=== PATIENT | male | born 1930 | race Caucasian/White ===

== ENCOUNTER → 2017-01-11 | Outpatient (CLI) | payer OTHER ==
[~2017-01-11] MED LIST: CALC-393 PO; CHOL2000 PO; DTR/5 PO; LSN/10125 PO; PANT1TAB48 PO; PSYL55.43 PO; SAW450CA5 PO; TAMS0.4C38 PO
[2017-01-11 12:36] LABS: ALT/SGPT 32 U/L (12-78); AST/SGOT 14 U/L (15-37); BLOOD UREA NITROGEN 17 mg/dl (7-18); BUN/CREATININE RATIO 13.9 (10-20); CALCIUM 8.7 mg/dl (8.5-10.1); CARBON DIOXIDE 28 mmol/L (21-32); CHLORIDE 110 mmol/L (98-107); CHOLESTEROL 153 mg/dl (0-200); CHOLESTEROL/HDL RATIO 3.9; GLUCOSE 131 mg/dl (70-99); HDL CHOLESTEROL 39 mg/dl; SODIUM 144 mmol/L (136-145)
[2017-01-11 12:39] LABS: ESTIMATED AVERAGE GLUCOSE 146 mg/dl; HA1C FLAG Normal (Normal)
[2017-01-11 12:40] LABS: ALB/GLOB RATIO 0.9 (0.9-2); ALKALINE PHOSPHATASE 81 U/L (45-117); LDL CHOLESTEROL CALCULATED 92 mg/dl; TRIGLYCERIDES 111 mg/dl (0-150); VERY LOW DENSITY LIPOPROT CALC 22 mg/dl
[2017-01-11 12:55] LABS: RATIO 19.2 mcg/mg (0-30.0)
== END | disposition home or self-care (01) ==
LOC: C.LABBFT 08:21
PROVIDERS: ATTEND Internal Medicine
DX: C61 Malignant neoplasm of prostate (principal); I10 Essential (primary) hypertension; Z13.6 Encounter for screening for cardiovascular disorders; E11.9 Type 2 diabetes mellitus without complications

== ENCOUNTER → 2017-01-17 | Outpatient (CLI) | payer OTHER ==
--- NOTE | 2017-01-17 14:41 | DIAGNOSTIC IMAGING REPORT ---
LEFT LOWER EXTREMITY VENOUS DOPPLER CLINICAL HISTORY: Left leg pain. COMPARISON STUDY: No previous studies for comparison. TECHNIQUE: Sonography of the deep venous system of the left lower extremity was performed. Compression and augmentation were evaluated. FINDINGS: The left common femoral, superficial femoral and popliteal veins were compressible. Augmentation was normal. Flow was shown within the deep calf vessels. Left calf subcutaneous edema was incidentally noted. IMPRESSION: No evidence of deep venous thrombus within the left lower extremity. Electronically signed by: Felipe Urrutia M.D. 01/17/2017 2:39 PM Dictated Date/Time: 01/17/2017 2:39 PM
== END | disposition home or self-care (01) ==
LOC: C.ULTR 14:02
PROVIDERS: ATTEND Physician Assistant Medical
DX: R22.42 Localized swelling, mass and lump, left lower limb (principal); M79.605 Pain in left leg; Z08 Encounter for follow-up examination after completed treatment for malignant neoplasm; Z92.3 Personal history of irradiation; Z85.46 Personal history of malignant neoplasm of prostate

== ENCOUNTER → 2017-01-17 | Outpatient (CLI) | payer OTHER ==
[2017-01-17 13:17] VITALS: BP 102/58; PULSE 67; TEMP 36.8; O2SAT 93
--- NOTE | 2017-01-17 16:22 | Radiation Oncology Follow-Up ---
Radiation Oncology Follow-Up Date of Visit Jan 17, 2017. Reason For Visit Six-month follow-up Radiation Completion Date 11/04/15 Diagnosis (1) Prostate cancer Status: Resolved Onset Date: 07/12/2011 Location: both lobes of prostate Histology Subtype: adenocarcinoma Stage: lll Permanent Comment: Rising PSA pretreatment PSA 12.6, on Avodart therefore 25.2 Status post ultrasound-guided biopsy 07/12/2011, biopsy stage TIIa Carter 3+3 Status post ultrasound-guided biopsy 12/11/2013 biopsy stage TIIa Carter 3+4 Status post ultrasound-guided biopsy 12/24/2014 biopsy stage TIIc Carter 4+3 and 3+3 Status post completion of radiation therapy utilizing IMRT/IGRT completed 2015 received 8040 cGy Last Edited By: Jennifer Quintero on Nov 13, 2015 09:06 History of Present Illness Mr. Sapp is an 86-year-old male who does not have a family history of prostate cancer. He was followed with screening prostate-specific antigens provided by the hospital until age 75. Subsequent to that he underwent testing secondary to symptoms. In April 2010 his prostate-specific antigen was 9.2. This was repeated in November 2010 and was 10.6. Because of the elevated prostate-specific antigen the patient was seen by Dr. Guzman. His digital rectal exam was unremarkable except for an enlarged prostate. On 07/12/2011 he underwent ultrasound-guided biopsies. A total of 14 biopsies were taken two each from the right and left base, right and left mid gland, right and left apex and one each from the right and left anterior gland. The biopsies from the left and right base revealed no malignancy but evidence of moderate acute and chronic inflammation. The biopsies from the left and right mid gland revealed no malignancy but mild chronic inflammation. Biopsies of left and right apex revealed no malignancy with mild chronic inflammation of the right apex. Biopsy of the left anterior gland was benign. Biopsy of the right anterior gland was positive for an adenocarcinoma [place] grade of 3+3 involving 25% of the core sample with no perineural invasion seen. Therefore a total of 1 out of 14 biopsies were taken Carter grade 3+3 Case: [id number]. The patient chose at that time to proceed with active surveillance. The patient continued to be monitored. His prostate-specific antigen on 2011 was 12.75. Prostate-specific antigen from 08/28/2012 was 15.2. The patient was started on Avodart 0.5 mg a day. Prostate-specific antigen from February 2013 reflected response to the initiation of the Avodart with a value of 6.08 for an adjusted value of 12.16. Prostate-specific antigen on 07/11/2013 was 8.49 for an adjusted value of 16.98. The patient was seen on 07/26/2013 with a complaint of hematuria. Dr. Guzman ordered a CT scan of the abdomen and pelvis with and without contrast that was performed on . This showed no renal masses or calculi. Multiple bilateral renal cysts were appreciated. Hepatic cysts were appreciated and an enlarged prostate measuring 6.3 cm. The patient was followed with a repeat prostate-specific antigen on 10/10/2013. This showed continued elevation despite being on Avodart with a value of 9.29 or an adjusted value of 18.58. Patient returned to see Dr. Guzman on 11/04/2013. His estimated prostate volume was greater than 100 mL. Because of the continued rise in prostate-specific antigen a repeat biopsy was recommended and performed on 2013. Again a total of 14 biopsies were taken as before. Biopsies from the left and right base, left and right mid, left apex and left and right anterior glands were all benign. The biopsy from the right apex was positive for an adenocarcinoma [place] grade of 3+4 involving 80% of the core sample with less than 5% of the tumor consisting of Sanchez pattern 4. No perineural invasion was identified. Case: [id number]. Estimated prostate volume was 77.4 g. The patient returned to discuss the findings of this second biopsy on 2013. At age 83 and given the small amount of Carter 4 it was felt reasonable to continue with observation with repeat prostate-specific antigen in 6 months and repeat biopsy in a year. On 06/25/2014 the patient had a repeat prostate-specific antigen that was 11.9 for an adjusted value of 23.8. The decision was made to repeat the prostate-specific antigen in 6 months. This was performed on 12/15/2014. The prostate-specific antigen value was 12.6 or an adjusted value of 25.2. Because of the continued progression of the prostate-specific antigen despite remaining on Avodart a third biopsy was recommended and performed on 12/24/2014. Again a total of 14 biopsies were taken. 2 biopsies from the left base were benign. 2 biopsies in the right base were benign with mild chronic inflammation and no neoplasm seen. 2 biopsies from the left mid gland were benign. 2 biopsies from the right mid gland were benign with mild chronic inflammation and no neoplasm seen. One of 2 biopsies in the left apex were positive for adenocarcinoma Carter grade of 3+3 involving one of 2 cores and 7% of the core sample with no perineural invasion identified. One of 2 biopsies from the right apex were positive for adenocarcinoma Carter grade of 4+3 involving 50% of the core sample with no perineural invasion seen. Single biopsy from the left anterior gland was positive for adenocarcinoma [place] grade of 3+4 involving 50% of the core sample and 40% of the tumor a Carter pattern 4. No perineural invasion was seen. The biopsy from the right anterior was also positive for an adenocarcinoma Sanchez grade of 4+3 involving 85% of the core sample without evidence of perineural invasion. Estimated prostate volume was 90 g. A total of 4 out of 14 biopsies were positive one of them Sanchez grade 3+3. 2 of them Sanchez grade 4+3 and 1 Carter grade 3+4. Case: 15-8-S. This latest biopsy shows a clear progression of disease with rising prostate- specific antigen and increase in the number of positive biopsies and in the Carter predominant grade 4. Dr. Guzman again discussed options including possible continuation of active surveillance as well as the possibility of radiation. Bone scan was obtained and was negative for metastatic disease. Decision was to treat with hormone suppression and external beam radiation therapy. Interim History He is doing well from urinary standpoint. His AUA score was 6. He completed expanded prostate cancer index composite for clinical practice and gave a score of 212 and urinary incontinence symptoms. He gave a score 1 of 12 urinary irritation symptoms. He gave a score of 0 of 12 and bowel symptoms. He gave a score of 7 of 12 and sexual symptoms. He gave a score 0 of 12 and hormonal vitality symptoms. His total was 10 of 60. He continues to take tamsulosin. He usually takes this at bedtime. After his last visit he did see Dr. Cullen and underwent an esophageal dilatation. This was repeated and he is doing much better in regards to swallowing. Dr. Cullen recommended Protonix which she has not been taking on a regular basis. He also has a complaint of left leg swelling. Denies pain. He notes that the swelling improves after lying down at night. Swelling is much less in the morning. Allergies Coded Allergies: No Known Allergies (Verified , 05/06/16) Home Medications Scheduled Calcium Carbonate (Calcium), 1 TAB PO QAM Cholecalciferol (Vitamin D3), 1 CAP PO QAM Hctz/Lisinopril (Lisinopril/Hctz 10/12.5 Mg), 1 TAB PO QAM Pantoprazole (Protonix), 1 TAB PO DAILY Psyllium (Metamucil Powder), 1 TSP PO QAM Saw [place] (Serenoa Repens) (Saw [place]), 1 CAP PO QAM Tamsulosin Hcl (Flomax), 1 CAP PO HS Review of Systems Gastrointestinal: Symptoms: WNL Oral: Symptoms: No Problems Respiratory: Symptoms: WNL Other Respiratory: getting over a cold and has a slight cough Urinary: Symptoms: WNL Comments: See AUA & EPIC Skin: Symptoms: No Problems Physical Exam Vital Signs Date Time Temp Pulse Resp B/P Pulse Ox O2 Delivery O2 Flow Rate FiO2 01/17/17 13:17 36.8 67 14 102/58 93 Fatigue: None General Appearance: no apparent distress Eyes: normal inspection, EOMI ENT: normal ENT inspection, hearing grossly normal Neck: no adenopathy, thyroid normal Respiratory/Chest: lungs clear, no respiratory distress, no accessory muscle use Cardiovascular: regular rate, rhythm, no gallop, no murmur Abdomen: non tender, soft, no organomegaly Anal / Rectum: Normal sphincter tone. No rectal masses no rectal bleeding. Prostate mildly enlarged. Extremities: + pertinent finding (there is noted swelling of the left lower extremity. He has +2 edema. There is mild edema on the right. He is a negative Homans sign.) Neurologic/Psychiatric: no motor/sensory deficits, alert, normal mood/affect Skin: warm/dry Lymphatic: no adenopathy Laboratory Studies Test 01/11/17 08:23 Urine Random Creatinine 180.0 mg/dl Urine Random Microalbumin 34.6 mg/L Urine Microalbumin/Creatinine Ratio 19.2 mcg/mg (0-30.0) Sodium Level 144 mmol/L (136-145) Potassium Level 4.0 mmol/L (3.5-5.1) Chloride Level 110 mmol/L (98-107) Carbon Dioxide Level 28 mmol/L (21-32) Anion Gap 6.0 mmol/L (3-11) Blood Urea Nitrogen 17 mg/dl (7-18) Creatinine 1.20 mg/dl (0.60-1.40) Estimated GFR () 63.1 Estimated GFR (Non- 54.4 BUN/Creatinine Ratio 13.9 (10-20) Random Glucose 131 mg/dl (70-99) Estimated Average Glucose 146 mg/dl Hemoglobin A1c 6.7 % (4.5-5.6) Calcium Level 8.7 mg/dl (8.5-10.1) Total Bilirubin 0.3 mg/dl (0.2-1) Aspartate Amino Transferase (AST) 14 U/L (15-37) Alanine Aminotransferase (ALT) 32 U/L (12-78) Alkaline Phosphatase 81 U/L (45-117) Total Protein 7.0 gm/dl (6.4-8.2) Albumin 3.3 gm/dl (3.4-5.0) Globulin 3.7 gm/dl (2.5-4.0) Albumin/Globulin Ratio 0.9 (0.9-2) Triglycerides Level 111 mg/dl (0-150) Cholesterol Level 153 mg/dl (0-200) HDL Cholesterol 39 mg/dl LDL Cholesterol, Calculated 92 mg/dl VLDL Cholesterol, Calculated 22 mg/dl Cholesterol/HDL Ratio 3.9 Prostate Specific Antigen 0.134 ng/ml (0.000-4.000) Additional Studies LEFT LOWER EXTREMITY VENOUS DOPPLER CLINICAL HISTORY: Left leg pain. COMPARISON STUDY: No previous studies for comparison. TECHNIQUE: Sonography of the deep venous system of the left lower extremity was performed. Compression and augmentation were evaluated. FINDINGS: The left common femoral, superficial femoral and popliteal veins were compressible. Augmentation was normal. Flow was shown within the deep calf vessels. Left calf subcutaneous edema was incidentally noted. IMPRESSION: No evidence of deep venous thrombus within the left lower extremity. Electronically signed by: Felipe Urrutia M.D. 01/17/2017 2:39 PM Dictated Date/Time: 01/17/2017 2:39 PM Assessment & Plan Plan: We reviewed all of his most free to PSAs. He is pleased with the outcome of his treatment. We discussed the tamsulosin. I suggested that he take it every other day to see if he notices a change in urination on the days that he does not take the medication. He can steadily wean off of the tamsulosin. Because of the swelling of the leg a venous Doppler was ordered. This was performed stat. This did not show a DVT. He will wear supportive stockings and keep his leg elevated. He was encouraged to take his Protonix as it was prescribed by Dr. Cullen. He'll continue regular follow-up with Dr. Pichardo. He has a recheck appointment with Dr. Guzman in May. We will see him therefore in November. He may call for a PSA order prior to the visit. He may call if he has the questions or concerns in the interim. Total Time In Follow-Up I spent 25 minutes speaking to the patient and perform examination. I spent 15 minutes reviewing information in completing this note. Copy To Romero Guzman MD, Urology; Kyle Pichardo M.D.
== END | disposition home or self-care (01) ==
LOC: C.ONC 13:11
PROVIDERS: ATTEND Physician Assistant Medical
DX: Z08 Encounter for follow-up examination after completed treatment for malignant neoplasm (principal); Z92.3 Personal history of irradiation; Z85.46 Personal history of malignant neoplasm of prostate

== ENCOUNTER → 2017-05-10 | Outpatient (CLI) | payer OTHER ==
[~2017-05-10] MED LIST changes: -DTR/5 PO
[2017-05-10 12:44] LABS: BLOOD UREA NITROGEN 34 mg/dl (7-18); BUN/CREATININE RATIO 25.8 (10-20)
[2017-05-10 12:48] LABS: PROSTATE SPECIFIC ANTIGEN 0.186 ng/ml (0.000-4.000)
--- NOTE | 2017-05-16 10:00 | CODING QUERY MEDICAL NECESSITY ---
SUPPORTING DIAGNOSIS NEEDED A supporting diagnosis is required for the test/procedure performed on this patient in order for us to be reimbursed by the patient's insurance. Please provide a supporting diagnosis for the following test/procedure listed below next to the test name along with your signature. *If there is no additional diagnosis for this patient that would support the following test/procedure please document that below next to the test/procedure. Test(s)/Procedure(s) that require a supporting diagnosis: * PSA DIAGNOSIS: Provider Signature: Date: Thank you [facility] Information Management Once completed, please kindly fax back to [phone] For questions please call [phone]
== END | disposition home or self-care (01) ==
LOC: C.LABBFT 08:04
PROVIDERS: ATTEND Urology
DX: N52.9 Male erectile dysfunction, unspecified (principal); N40.0 Benign prostatic hyperplasia without lower urinary tract symptoms

== ENCOUNTER → 2017-08-18 | Outpatient (CLI) | payer OTHER ==
[2017-08-18 12:30] LABS: HEMATOCRIT 41.1 % (42-52); MEAN CELL VOLUME 93.8 fL (80-100); MEAN CORPUSCULAR HEMOGLOBIN 31.1 pg (25-34); MEAN CORPUSCULAR HGB CONC 33.1 g/dl (32-36); MEAN PLATELET VOLUME 12.5 fL (7.4-10.4); PLATELET COUNT 141 K/uL (130-400); RED BLOOD COUNT 4.38 M/uL (4.7-6.1); WHITE BLOOD COUNT 4.49 K/uL (4.8-10.8)
[2017-08-18 12:51] LABS: ALB/GLOB RATIO 0.9 (0.9-2); ALKALINE PHOSPHATASE 76 U/L (45-117); ALT/SGPT 28 U/L (12-78); AST/SGOT 17 U/L (15-37); BLOOD UREA NITROGEN 20 mg/dl (7-18); BUN/CREATININE RATIO 15.9 (10-20); CALCIUM 8.3 mg/dl (8.5-10.1); CARBON DIOXIDE 28 mmol/L (21-32); CHLORIDE 108 mmol/L (98-107); CREATININE 1.27 mg/dl (0.60-1.40); GLUCOSE 122 mg/dl (70-99); HDL CHOLESTEROL 42 mg/dl; POTASSIUM 3.9 mmol/L (3.5-5.1); SODIUM 141 mmol/L (136-145)
[2017-08-18 12:57] LABS: ESTIMATED AVERAGE GLUCOSE 134 mg/dl; HA1C FLAG Normal (Normal)
[2017-08-18 13:04] LABS: CHOLESTEROL 155 mg/dl (0-200); CHOLESTEROL/HDL RATIO 3.7; LDL CHOLESTEROL CALCULATED 66 mg/dl; TRIGLYCERIDES 237 mg/dl (0-150); VERY LOW DENSITY LIPOPROT CALC 47 mg/dl
== END | disposition home or self-care (01) ==
LOC: C.LABBFT 10:01
PROVIDERS: ATTEND Internal Medicine
DX: E11.9 Type 2 diabetes mellitus without complications (principal)

== ENCOUNTER → 2017-11-17 | Outpatient (CLI) | payer OTHER ==
[~2017-11-17] MED LIST changes: +PANT1TAB3 PO; -PANT1TAB48 PO
== END | disposition home or self-care (01) ==
LOC: C.LABBFT 11:30
PROVIDERS: ATTEND Physician Assistant Medical
DX: C61 Malignant neoplasm of prostate (principal)

== ENCOUNTER → 2017-11-21 | Outpatient (CLI) | payer OTHER ==
[2017-11-21 13:50] VITALS: BP 126/73; PULSE 68; TEMP 36.6; O2SAT 97
--- NOTE | 2017-11-21 15:42 | Radiation Oncology Follow-Up ---
Radiation Oncology Follow-Up Date of Visit Nov 21, 2017. Reason For Visit Annual follow-up Radiation Completion Date 11/04/15 Diagnosis (1) Prostate cancer Status: Resolved Onset Date: 07/12/2011 Location: both lobes of the prostate Histology Subtype: adenocarcinoma Stage: lll Permanent Comment: Rising PSA pretreatment PSA 12.6, on Avodart therefore 25.2 Status post ultrasound-guided biopsy 07/12/2011, biopsy stage TIIa Sanchez 3+3 Status post ultrasound-guided biopsy 12/11/2013 biopsy stage TIIa Sanchez 3+4 Status post ultrasound-guided biopsy 12/24/2014 biopsy stage TIIc Sanchez 4+3 and 3+3 6 months of hormonal suppression Status post completion of radiation therapy utilizing IMRT/IGRT completed 2015 received 8040 cGy Last Edited By: Jennifer Quintero on Nov 21, 2017 15:37 History of Present Illness Mr. Sapp does not have a family history of prostate cancer. He was followed with screening prostate-specific antigens provided by the hospital until age 75. Subsequent to that he underwent testing secondary to symptoms. In April 2010 his prostate-specific antigen was 9.2. This was repeated in November 2010 and was 10.6. Because of the elevated prostate-specific antigen the patient was seen by Dr. Guzman. His digital rectal exam was unremarkable except for an enlarged prostate. On 07/12/2011 he underwent ultrasound-guided biopsies. A total of 14 biopsies were taken two each from the right and left base, right and left mid gland, right and left apex and one each from the right and left anterior gland. The biopsies from the left and right base revealed no malignancy but evidence of moderate acute and chronic inflammation. The biopsies from the left and right mid gland revealed no malignancy but mild chronic inflammation. Biopsies of left and right apex revealed no malignancy with mild chronic inflammation of the right apex. Biopsy of the left anterior gland was benign. Biopsy of the right anterior gland was positive for an adenocarcinoma [place] grade of 3+3 involving 25% of the core sample with no perineural invasion seen. Therefore a total of 1 out of 14 biopsies were taken Sanchez grade 3+3 Case: [id number]. The patient chose at that time to proceed with active surveillance. The patient continued to be monitored. His prostate-specific antigen on 2011 was 12.75. Prostate-specific antigen from 08/28/2012 was 15.2. The patient was started on Avodart 0.5 mg a day. Prostate-specific antigen from February 2013 reflected response to the initiation of the Avodart with a value of 6.08 for an adjusted value of 12.16. Prostate-specific antigen on 07/11/2013 was 8.49 for an adjusted value of 16.98. The patient was seen on 07/26/2013 with a complaint of hematuria. Dr. Guzman ordered a CT scan of the abdomen and pelvis with and without contrast that was performed on . This showed no renal masses or calculi. Multiple bilateral renal cysts were appreciated. Hepatic cysts were appreciated and an enlarged prostate measuring 6.3 cm. The patient was followed with a repeat prostate-specific antigen on 10/10/2013. This showed continued elevation despite being on Avodart with a value of 9.29 or an adjusted value of 18.58. Patient returned to see Dr. Guzman on 11/04/2013. His estimated prostate volume was greater than 100 mL. Because of the continued rise in prostate-specific antigen a repeat biopsy was recommended and performed on 2013. Again a total of 14 biopsies were taken as before. Biopsies from the left and right base, left and right mid, left apex and left and right anterior glands were all benign. The biopsy from the right apex was positive for an adenocarcinoma [place] grade of 3+4 involving 80% of the core sample with less than 5% of the tumor consisting of Sanchez pattern 4. No perineural invasion was identified. Case: [id number]. Estimated prostate volume was 77.4 g. The patient returned to discuss the findings of this second biopsy on 2013. At age 83 and given the small amount of [place] 4 it was felt reasonable to continue with observation with repeat prostate-specific antigen in 6 months and repeat biopsy in a year. On 06/25/2014 the patient had a repeat prostate-specific antigen that was 11.9 for an adjusted value of 23.8. The decision was made to repeat the prostate-specific antigen in 6 months. This was performed on 12/15/2014. The prostate-specific antigen value was 12.6 or an adjusted value of 25.2. Because of the continued progression of the prostate-specific antigen despite remaining on Avodart a third biopsy was recommended and performed on 12/24/2014. Again a total of 14 biopsies were taken. 2 biopsies from the left base were benign. 2 biopsies in the right base were benign with mild chronic inflammation and no neoplasm seen. 2 biopsies from the left mid gland were benign. 2 biopsies from the right mid gland were benign with mild chronic inflammation and no neoplasm seen. One of 2 biopsies in the left apex were positive for adenocarcinoma [place] grade of 3+3 involving one of 2 cores and 7% of the core sample with no perineural invasion identified. One of 2 biopsies from the right apex were positive for adenocarcinoma [place] grade of 4+3 involving 50% of the core sample with no perineural invasion seen. Single biopsy from the left anterior gland was positive for adenocarcinoma [place] grade of 3+4 involving 50% of the core sample and 40% of the tumor a [place] pattern 4. No perineural invasion was seen. The biopsy from the right anterior was also positive for an adenocarcinoma [place] grade of 4+3 involving 85% of the core sample without evidence of perineural invasion. Estimated prostate volume was 90 g. A total of 4 out of 14 biopsies were positive one of them [place] grade 3+3. 2 of them Sanchez grade 4+3 and 1 [place] grade 3+4. Case: 15-8-S. This latest biopsy shows a clear progression of disease with rising prostate- specific antigen and increase in the number of positive biopsies and in the [place] predominant grade 4. Dr. Guzman again discussed options including possible continuation of active surveillance as well as the possibility of radiation. Bone scan was obtained and was negative for metastatic disease. Decision was to treat with hormone suppression and external beam radiation therapy. Interim History He's been doing well over the past year in regards to his urinary status. He gave an AUA score of 5. He completed and expanded prostate cancer index composite for clinical practice and gave a score of 4 of 12 and urinary incontinence symptoms. He gave a score of 0 of 12 urinary irritation symptoms. He gave a score 0 of 12 in bowel symptoms. He gave a score of 6 of 12 and sexual symptoms. He gave a score 0 of 12 and hormonal vitality symptoms. His total was 10 of 60. He had a recheck PSA 05/10/2017. That was 0.186. A PSA on 11/17/2017 was 0.500. Allergies Coded Allergies: No Known Allergies (Verified , 05/06/16) Home Medications Scheduled Calcium Carbonate (Calcium), 1 TAB PO QAM Cholecalciferol (Vitamin D3), 1 CAP PO QAM Hctz/Lisinopril (Lisinopril/Hctz 10/12.5 Mg), 1 TAB PO QAM Pantoprazole (Protonix), 1 TAB PO DAILY Psyllium (Metamucil Powder), 1 TSP PO QAM Saw [place] (Serenoa Repens) (Saw [place]), 1 CAP PO QAM Review of Systems Gastrointestinal: Symptoms: WNL Oral: Symptoms: No Problems Respiratory: Symptoms: WNL Other Respiratory: getting over a cold and has a slight cough Urinary: Symptoms: WNL Comments: See AUA & EPIC Skin: Symptoms: No Problems Physical Exam Vital Signs Date Time Temp Pulse Resp B/P (MAP) Pulse Ox O2 Delivery O2 Flow Rate FiO2 11/21/17 13:50 36.6 68 18 126/73 97 Fatigue: None General Appearance: no apparent distress Eyes: normal inspection, EOMI ENT: normal ENT inspection, hearing grossly normal Respiratory/Chest: lungs clear, no respiratory distress, no accessory muscle use Cardiovascular: regular rate, rhythm, no gallop, no murmur Abdomen: non tender, soft, no organomegaly Anal / Rectum: Normal sphincter tone. No rectal masses no rectal bleeding. Prostate is enlarged. Extremities: no pedal edema Neurologic/Psychiatric: no motor/sensory deficits, alert, normal mood/affect Skin: warm/dry Pain Management Patient Reports Pain: No Pain Management Plan He denies pain therefore requires no pain management. Laboratory Laboratory Results: were reviewed Laboratory Comments: Reviewed in the interim history. Pathology Pathology Results: not applicable Imaging Imaging Studies: not applicable Assessment & Plan Plan: We reviewed the increase of the PSA. His case was discussed with Dr. Cuevas. 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 The plan will be for him to continue PSAs every 6 months. He'll have a recheck PSA in a follow-up visit with Dr. Guzman in June. We asked him to return to our office in 1 year. An order was given for him to have a PSA prior to his visit. If you call office if he has any questions or concerns in the interim. Total Time In Follow-Up I spent 20 minutes speaking to the patient performing examination. I spent 15 minutes reviewing information completing this note. Copy To Romero Guzman MD, Urology; Kyle Pichardo M.D.
== END | disposition home or self-care (01) ==
LOC: C.ONC 13:32
PROVIDERS: ATTEND Physician Assistant Medical
DX: Z08 Encounter for follow-up examination after completed treatment for malignant neoplasm (principal); Z92.3 Personal history of irradiation; Z85.46 Personal history of malignant neoplasm of prostate

== ENCOUNTER → 2018-05-14 | Outpatient (CLI) | payer OTHER ==
[~2018-05-14] MED LIST changes: -TAMS0.4C38 PO
[2018-05-14 17:46] LABS: BLOOD UREA NITROGEN 26 mg/dl (7-18); CREATININE 1.32 mg/dl (0.60-1.40)
== END | disposition home or self-care (01) ==
LOC: C.LABBFT 15:16
PROVIDERS: ATTEND Urology
DX: N52.9 Male erectile dysfunction, unspecified (principal)